=== PATIENT | male | born 1990 | race Caucasian/White ===

== ENCOUNTER 2016-05-12 13:15 | Emergency (ER) | payer SELFPAY ==
[~2016-05-12] VITALS: Ht 162.6 cm; Wt 72.6 kg
[~2016-05-12 13:15] MED LIST: AGM875T PO; CETI10CA PO; PRED10TA PO
[2016-05-12] MEDS ORDERED: AMOX500C2 PO (14:47)
--- NOTE | 2016-05-12 14:49 | ED EENT ---
History of Present Illness General Chief Complaint: Oral/Throat Problems Stated Complaint: SORE THROAT Nursing Triage Note: sore throat beginning yesterday Source: patient, family (sister) Exam Limitations: no limitations History of Present Illness Time seen by provider: 14:25 Initial Comments 25-year-old male patient presents to the emergency department complains of sore throat beginning yesterday. Reports today noticed white spots on his tonsils. Timing/Duration: abrupt Location: throat Prearrival Treatment: no prearrival treatment Presenting Symptoms/Injuries: sore throat Modifying Factors: Worse With Other (worse with swallowing.) Allergies and Home Medications Allergies Coded Allergies: No Known Drug Allergies (Unverified , 05/15/13) Home Medications Amoxicillin 500 Mg Capsule, 500 MG PO QID, #28 Ref 0 Prescribed by: SERGEY MANCERA on 05/12/16 1447 Cetirizine Hcl 10 Mg Capsule, 10 MG PO DAILY, #15 Prescribed by: SILKE SPENCER on 06/13/14 1217 Review of Systems Constitutional: No chills, No fever, No malaise Eyes: No Symptoms Reported Ears: Denies Dizziness, Denies Pain Nose: denies congestion, denies pain Mouth: no symptoms reported Throat: pain, denies swelling, denies neck stiffness, denies hoarse, denies aphonia, denies muffled, painful swallowing, denies difficulty with fluids Respiratory: no symptoms reported Cardiovascular: no symptoms reported Gastrointestinal: no symptoms reported Neurological: No Symptoms Reported All Other Systems Reviewed Negative Unless Noted: Yes (Negative excepted noted.) Past Hfyuqjx-Stqwfu-Rncdgh Hx Patient Social History Alcohol Use: Regular Use Recreational Drug Use: No Smoking Status: Current Everyday Smoker Recent Foreign Travel: No Contact w/Someone Who Travel: No Recent Hopitalizations: No Immunizations Up To Date Tetanus Booster (TDap): Less than 5yrs Surgeries HX Surgeries: No Respiratory Hx Respiratory Disorders: No Cardiovascular Hx Cardiac Disorders: No Neurological Hx Neurological Disorders: No Reproductive System Hx Reproductive Disorders: No Sexually Transmitted Disease: No HIV/AIDS: No Genitourinary Hx Genitourinary Disorders: No Gastrointestinal Hx Gastrointestinal Disorders: No Musculoskeletal Hx Musculoskeletal Disorders: No Endocrine Hx Endocrine Disorders: No HEENT HX ENT Disorders: No Cancer Hx Cancer: No Psychosocial Hx Psychiatric Problems: No Behavioral Health Disorders: ADD/ADHD Integumentary HX Skin/Integumentary Disorder: No Blood Transfusions Hx Blood Disorders: No Adverse Reaction to a Blood Tr: No Reviewed Nursing Assessment Reviewed/Agree w Nursing PMH: Yes Family Medical History Significant Family History: No Pertinent Family Hx Physical Exam General Appearance: WD/WN, no apparent distress Eyes: bilateral eye EOMI, bilateral eye PERRL, bilateral eye normal inspection Ears: bilateral ear TM normal, bilateral ear auricle normal, bilateral ear canal normal Nose: normal inspection Mouth/Throat: normal mouth inspection, tonsillar exudate, tonsillar swelling, No trismus, No uvula swelling, No voice changes, other (positive pharyngeal erythema) Neck: non-tender, full range of motion, supple, normal inspection Cardiovascular: regular rate, rhythm, no murmur Respiratory: lungs clear, normal breath sounds, no respiratory distress Neurologic/Psychiatric: alert, normal mood/affect, oriented x 3 Skin: normal color, warm/dry Progress/Results/Core Measures Results/Orders Lab Results Laboratory Tests Test 05/12/16 14:14 Range/Units Group A Streptococcus Screen NEGATIVE NEGATIVE My Orders Orders - SERGEY MANCERA Rapid Strep A Screen (05/12/16 14:13) Departure Communication Progress Notes Patient seen and evaluated. Laboratory findings discussed with the patient. Proceed with discharge to home. Impression Impression: Primary Impression: Tonsillitis Disposition: HOME, SELF-CARE Condition: Improved Departure-Patient Inst. Decision time for Depature: 14:46 Referrals: NO,LOCAL PHYSICIAN (PCP/Family) Primary Care Physician Patient Instructions: Strep Throat (DC) Add. Discharge Instructions: All discharge instructions reviewed with patient and/or family. Voiced understanding. Medications as instructed. Tylenol Extra Strength fubr-aiz-hpcuonp as directed for pain or fever. Ibuprofen 800 mg by mouth every 8 hours as needed for pain or fever. Throat lozenges or spray itim-lec-bdjqyax as directed for pain. Follow-up with the family practitioner of your choice for recheck if needed. Return to the emergency department for worsened symptoms or any other concerns. Scripts Amoxicillin (Amoxicillin) 500 Mg Capsule 500 MG PO QID, #28 CAP 0 Refills Prov: SERGEY MANCERA 05/12/16 Work/School Note: Local Medical Staff Listing, Work Release Form Date Seen in the Emergency Department: May 12, 2016 Return to Work: May 13, 2016 Restrictions: No Restrictions SERGEY MANCERA May 12, 2016 14:49
[2016-05-12 14:59] VITALS: BP 130/87
--- OUTSIDE RECORDS SUMMARY | 2016-05-27 18:19 | XMS REPORT ---
Author Author KATHY SHARMA Organization [employer] Address Unknown Phone Unavailable Care Team Providers Care Dog Breeder Name Role Phone KATHY SHARMA CP Unavailable Allergies, Adverse Reactions, Alerts Substance Reaction Event Type N.K.D.A. Info Not Available Non Drug Allergy Problems Problem Type Condition Code Onset Dates Condition Status Problem Screening examination for venereal disease V74.5 Active Assessment Acute conjunctivitis of right eye, unspecified acute conjunctivitis type H10.31 Active Problem Unspecified trichomoniasis 131.9 Active Medications Medication Code System Code Instructions Start Date End Date Status Dosage Qkqttwsl-Vrauxflnb-Iwgczsrw [facility] [id number] Ophthalmic Four times a day September 07, 2015 1 drop into affected eye Procedures Procedure Coding System Code Date Office Visit, Est Pt., Level 3 CPT-4 08265 September 07, 2015 Vital Signs Date/Time: September 07, 2015 Cardiac Monitoring Heart Rate 80 bpm Weight 140.6 lbs Height 66 in Blood Pressure Diastolic 90 mmHg Blood Pressure Systolic 124 mmHg Results No Known Results Summary Purpose [employer] Submission
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
== END 2016-05-12 14:59 | disposition home or self-care (01) ==
LOC: EDUNIT# 13:15 → ER 13:19
DX: J03.90 Acute tonsillitis, unspecified (principal); F17.210 Nicotine dependence, cigarettes, uncomplicated
CPT/HCPCS: 87430; 99282

== ENCOUNTER 2016-06-04 17:47 | Emergency (ER) | payer SELFPAY ==
[~2016-06-04] VITALS: Ht 160 cm; Wt 74.8 kg
[~2016-06-04 17:47] MED LIST changes: +AMOX500C2 PO
--- NOTE | 2016-06-04 18:22 | ED Abdominal Pain ---
General Chief Complaint: Abdominal/GI Problems Stated Complaint: SHARP ABD PAIN Nursing Triage Note: INTERMITTENT SHARP LUQ PAIN X2 DAYS. DENIES NVD. Sepsis Screen: No Definite Risk Source of Information: Patient Exam Limitations: No Limitations History of Present Illness Time Seen By Provider: 18:17 Initial Comments patient presents with 3 days of intermittent sharp pain in his left anterior abdominal wall reproducible on palpation last for less than 10 minutes at a time worse with moving twisting or stretching. He usually just stand still for a few moments and then it eases off and go back to work. He works at [employer]. Patient denies nausea, vomiting, fevers, chills, recent travel, camping, diarrhea, melena, trauma, history of these symptoms. Allergies and Home Medications Allergies Coded Allergies: No Known Drug Allergies (Unverified , 05/15/13) Home Medications Amoxicillin 500 Mg Capsule, 500 MG PO QID, #28 Ref 0 Prescribed by: SERGEY MANCERA on 05/12/16 1447 Cetirizine Hcl 10 Mg Capsule, 10 MG PO DAILY, #15 Prescribed by: SIKLE SPENCER on 06/13/14 1217 Review of Systems Constitutional: No chills, No fever, No malaise Respiratory: Denies Cough, Denies Shortness of Air, Denies Wheezing Cardiovascular: Denies Chest Pain, Denies Edema, Denies Syncope Gastrointestinal: See HPI, Denies Abdomen Distended, Abdominal Pain, Denies Constipated, Denies Diarrhea, Denies Nausea, Denies Vomiting Genitourinary: Denies Burning, Denies Drainage, Denies Frequency Musculoskeletal: No back pain, No joint pain Skin: No pruritus, No rash Psychiatric/Neurological: Denies Headache, Denies Numbness Past Jcuhhje-Maivde-Vbkhwy Hx Patient Social History Alcohol Use: Regular Use Recreational Drug Use: No Smoking Status: Current Everyday Smoker Type Used: Cigars Recent Foreign Travel: No Contact w/Someone Who Travel: No Recent Infectious Disease Expo: No Recent Hopitalizations: No Immunizations Up To Date Tetanus Booster (TDap): Less than 5yrs Surgeries HX Surgeries: No Respiratory Hx Respiratory Disorders: No Cardiovascular Hx Cardiac Disorders: No Neurological Hx Neurological Disorders: No Reproductive System Hx Reproductive Disorders: No Sexually Transmitted Disease: No HIV/AIDS: No Genitourinary Hx Genitourinary Disorders: No Gastrointestinal Hx Gastrointestinal Disorders: Yes Gastrointestinal Disorders: Gastroesophageal Reflux Musculoskeletal Hx Musculoskeletal Disorders: No Endocrine Hx Endocrine Disorders: No HEENT HX ENT Disorders: No Cancer Hx Cancer: No Psychosocial Hx Psychiatric Problems: No Behavioral Health Disorders: ADD/ADHD Integumentary HX Skin/Integumentary Disorder: No Blood Transfusions Hx Blood Disorders: No Adverse Reaction to a Blood Tr: No Family Medical History Significant Family History: No Pertinent Family Hx Physical Exam Vital Signs VS - Last 72 Hours, by Label 06/04/16 06/04/16 17:50 18:32 Temp 99.0 Pulse 100 89 Resp 16 16 B/P (MAP) 143/93 Pulse Ox 100 98 Capillary Refill : Less Than 3 Seconds General Appearance: WD/WN, no apparent distress HEENT: PERRL/EOMI, pharynx normal Neck: non-tender, full range of motion, supple, normal inspection Respiratory: chest non-tender, lungs clear, normal breath sounds Cardiovascular: normal peripheral pulses, regular rate, rhythm, no edema Peripheral Pulses: 4+ Dorsalis Pedis (R), 4+ Left Dors-Pedis (L), 4+ Radial Pulses (R), 4+ Radial Pulses (L) Gastrointestinal: normal bowel sounds, soft, no organomegaly, no pulsatile mass , No distended, tenderness (LUQ mild deep TTP) Progress/Results/Core Measures Results/Orders Vital Signs/I&O Vital Sign - Last 12Hours 06/04/16 06/04/16 17:50 18:32 Temp 99.0 Pulse 100 89 Resp 16 16 B/P (MAP) 143/93 Pulse Ox 100 98 Blood Pressure Mean: 110 Progress Note : Time: 00:18 Progress Note PT states he just had blood work a few weeks ago and declined further bloodwork today. He wasnted to make sure it was not serious. I explained it would unlikely be life threatening and he could follow up with his PCP. He states he goes to the HD to get checked for STIs every 6 weeks. Departure Impression Impression: Primary Impression: Abdominal wall pain Disposition: 01 HOME, SELF-CARE Condition: Stable Departure-Patient Inst. Decision time for Depature: 18:23 Referrals: NO,LOCAL PHYSICIAN (PCP) Primary Care Physician Patient Instructions: No Instuctions Given Add. Discharge Instructions: Your symptoms sound like abdominal wall pain which is musculoskeletal in nature and will resolve usually in a few weeks. you can treat this with heat or ice applied directly to the point that hurts as well as Tylenol or ibuprofen. if she developed new or concerning symptoms such as fever, nausea, vomiting, diarrhea or constipation and you should represent to the ER. I would also suggest getting some MiraLAX or Colace keep your bowel movements soft you don't have to strain so much. Use good body lifting mechanics while at work. All discharge instructions reviewed with patient and/or family. Voiced understanding. Work/School Note: Work Release Form Date Seen in the Emergency Department: Jun 04, 2016 Return to Work: Jun 04, 2016 Restrictions: No Restrictions JENNIFER ORTIZ Jun 04, 2016 18:22
[2016-06-04 18:32] VITALS: BP 126/74
== END 2016-06-04 18:32 | disposition home or self-care (01) ==
LOC: EDUNIT# 17:47 → ER 17:49
DX: R10.12 Left upper quadrant pain (principal)
CPT/HCPCS: 99282

== ENCOUNTER 2016-07-18 15:22 | Emergency (ER) | payer SELFPAY ==
[~2016-07-18] VITALS: Ht 160 cm; Wt 74.8 kg
--- NOTE | 2016-07-18 15:46 | ED Back Pain ---
General Chief Complaint: General Problems/Pain Stated Complaint: BACK PAIN Nursing Triage Note: patient reports catching patient last night off bar stool, patient reports today he slid and felt something pop on his L side. c/o side pain that wraps around to his abdomen and back Nursing Sepsis Screen: No Definite Risk Source of Information: Patient Exam Limitations: No Limitations History of Present Illness Time Seen by Provider: 15:44 Initial Comments To ER with midsternal pain and left-sided lower thoracic back pain. This began last night when he was admitted the bar with a friend and the friend began to fall so he twisted to catch her and felt a popping sensation of his back. Pain is worse with deep breathing and any movement or twisting motion in the left side of the chest, front and back since then. Location: T-Spine Timing/Duration: 12-24 Hours Severity: Moderate Allergies and Home Medications Allergies Coded Allergies: No Known Drug Allergies (Unverified , 05/15/13) Home Medications Amoxicillin 500 Mg Capsule, 500 MG PO QID, #28 Ref 0 Prescribed by: SERGEY MANCERA on 05/12/16 1447 Cetirizine Hcl 10 Mg Capsule, 10 MG PO DAILY, #15 Prescribed by: SILKE SPENCER on 06/13/14 1217 Constitutional: see HPI EENTM: see HPI Respiratory: no symptoms reported Cardiovascular: no symptoms reported Genitourinary: no symptoms reported Musculoskeletal: see HPI, back pain Skin: no symptoms reported Past Iajzigt-Esaeae-Ojalsr Hx Patient Social History Alcohol Use: Occasionally Uses Recreational Drug Use: No Type Used: Cigars Recent Foreign Travel: No Contact w/Someone Who Travel: No Recent Infectious Disease Expo: No Recent Hopitalizations: No Immunizations Up To Date Tetanus Booster (TDap): Less than 5yrs Surgeries HX Surgeries: No Respiratory Hx Respiratory Disorders: No Cardiovascular Hx Cardiac Disorders: No Neurological Hx Neurological Disorders: No Reproductive System Hx Reproductive Disorders: No Sexually Transmitted Disease: No HIV/AIDS: No Genitourinary Hx Genitourinary Disorders: No Gastrointestinal Hx Gastrointestinal Disorders: Yes Gastrointestinal Disorders: Gastroesophageal Reflux Musculoskeletal Hx Musculoskeletal Disorders: No Endocrine Hx Endocrine Disorders: No HEENT HX ENT Disorders: No Cancer Hx Cancer: No Psychosocial Hx Psychiatric Problems: No Behavioral Health Disorders: ADD/ADHD Integumentary HX Skin/Integumentary Disorder: No Blood Transfusions Hx Blood Disorders: No Adverse Reaction to a Blood Tr: No Family Medical History Significant Family History: No Pertinent Family Hx Physical Exam Vital Signs Vital Sign - Last 12Hours 07/18/16 15:38 Temp 98.2 Pulse 108 Resp 18 B/P (MAP) 132/83 Pulse Ox 100 Capillary Refill : Less Than 3 Seconds General Appearance: No Apparent Distress, WD/WN HEENT: PERRL/EOMI, TMs Normal Neck: Full Range of Motion, Normal Inspection Respiratory: No Accessory Muscle Use, No Respiratory Distress Gastrointestinal: Normal Bowel Sounds, Non Tender, Soft Extremity: Normal Capillary Refill, Normal Inspection Neurologic/Psychiatric: Alert, Oriented x3, No Motor/Sensory Deficits Skin: Normal Color, Warm/Dry Progress/Results/Core Measures Results/Orders My Orders Orders - SILKE SPENCER APRN Chest Pa/Lat (2 View) (07/18/16 15:42) Hydrocodone/Apap 5/325 Tablet (Lortab 5 (07/18/16 15:45) Vital Signs/I&O Vital Sign - Last 12Hours 07/18/16 15:38 Temp 98.2 Pulse 108 Resp 18 B/P (MAP) 132/83 Pulse Ox 100 Blood Pressure Mean: 99 Departure Impression Impression: Primary Impression: Muscle strain Disposition: 01 HOME, SELF-CARE Condition: Stable Departure-Patient Inst. Decision time for Depature: 15:57 Referrals: NO,LOCAL PHYSICIAN (PCP) Primary Care Physician Patient Instructions: Muscle Strain Add. Discharge Instructions: 1. Medications as directed 2. Follow-up with your doctor next week 3. All discharge instructions reviewed with patient and/or family. Voiced understanding. Scripts Naproxen (Naprosyn) 500 Mg Tablet 500 MG PO BID Y for PAIN-MODERATE, #30 TAB Prov: SILKE SPENCER APRN 07/18/16 Cyclobenzaprine HCl (Cyclobenzaprine HCl) 5 Mg Tablet 5 MG PO TID Y for PAIN-MODERATE, #20 TAB Prov: SILKE SPENCER APRN 07/18/16 Images Torso/Trunk 1 - Tenderness 1 - Tenderness SILKE SPENCER APRN Jul 18, 2016 15:46
[2016-07-18] MEDS: HYDROcodone/APAP 5 MG/325 MG (LORTAB) TAB PO ONE (15:56)
[2016-07-18] MEDS ORDERED: NAPR500T PO (15:58)
[2016-07-18] MEDS ORDERED: CYCL5TAB PO (15:58)
--- NOTE | 2016-07-18 16:15 | Diagnostic Imaging Report ---
INDICATION: Posterior left chest pain. DISCUSSION: Two views of the chest were obtained, no comparison. Normal heart size. No focal consolidation, pleural fluid, or pneumothorax. No acute osseous abnormality identified. IMPRESSION: 1. Negative chest. Dictated by: Dictated on workstation # [id number]
[2016-07-18 16:26] VITALS: BP 132/83
== END 2016-07-18 16:24 | disposition home or self-care (01) ==
LOC: EDUNIT# 15:22 → ER 15:24
DX: S29.012A Strain of muscle and tendon of back wall of thorax, initial encounter (principal); X50.0XXA Overexertion from strenuous movement or load, initial encounter; Y92.511 Restaurant or cafe as the place of occurrence of the external cause; Y99.8 Other external cause status
CPT/HCPCS: 71020; 99281

== ENCOUNTER 2018-05-18 12:15 | Emergency (ER) | payer SELFPAY ==
[~2018-05-18] VITALS: Ht 162.6 cm; Wt 61.2 kg
[~2018-05-18 12:15] MED LIST changes: +CYCL5TAB PO; +NAPR-1071 PO
--- OUTSIDE RECORDS SUMMARY | 2018-05-18 12:22 | XMS REPORT ---
Author Author DARIEN SANCHEZ Organization [facility] Address [address] [place] [address] Care Team Providers Care Production Lead Name Role Phone DARIEN SANCHEZ Unavailable PROBLEMS Unknown Problems ALLERGIES No Known Allergies ENCOUNTERS Encounter Location Date Diagnosis [facility] [address] [phone] Dec, Acute sinusitis J01.90 [facility] [address] [place] [phone] Mar, [facility] [address] [id number] Mar, Dental examination Z01.20 [facility] [address] [phone] Jan, Body aches R52 ; Other viral agents as the cause of diseases classified elsewhere B97.89 and Acute upper respiratory infection, unspecified J06.9 [place] [place] [id number] [place] [phone] Nov, Nausea and vomiting, intractability of vomiting not specified, unspecified vomiting type R11.2 ; Exposure to the flu Z20.828 and Tobacco use Z72.0 [facility] [address] [place] [id number] [place] [phone] Oct, Allergic rhinitis, unspecified allergic rhinitis trigger, unspecified rhinitis seasonality J30.9 ; Middle ear effusion, bilateral H65.93 and Diarrhea, unspecified type R19.7 [facility] [address] [place], [place] [id number] [place] [phone] Aug, Acute conjunctivitis of right eye, unspecified acute conjunctivitis type H10.31 [facility] [address] [facility] [id number] [address] May, [facility] [address] [facility] [id number], [place] [address] May, [facility] [address] [facility] [id number] [address] Jan, [facility] [address] [facility] [id number], [place] [address] Jan, [facility] [address] [facility] [id number], [place] [address] Dec, [place] [address] [facility] [id number], [place] [address] Dec, IMMUNIZATIONS No Known Immunizations SOCIAL HISTORY Never Assessed REASON FOR VISIT Pt has been having generalized weakness for 3 days and yesterday he was vomiting x 3 and once today. Pt also stated that he his having nasal congestion. Pt stated that he has been having nasal drainage as well. Pt has had a cough for 3 days and a fever reaching 101 two days ago but no fever since that time. LINDA PLAN OF CARE Activity Details Follow Up if not improving with PCP or reg follow up Reason: VITAL SIGNS Height 66 in 2018-01-12 Weight 146 lbs 2018-01-12 Temperature 98 degrees Fahrenheit 2018-01-12 Heart Rate 96 bpm 2018-01-12 Respiratory Rate 18 2018-01-12 Oximetry on room air:99 % 2018-01-12 BMI 23.56 kg/m2 2018-01-12 Blood pressure systolic 106 mmHg 2018-01-12 Blood pressure diastolic 70 mmHg 2018-01-12 MEDICATIONS Medication Instructions Dosage Frequency Start Date End Date Duration Status DayQuil Multi-Symptom Active PredniSONE 20 MG Orally Once a day 2 tablet 24h Dec, 5 days Active Ibuprofen 200 MG Orally Three times a day 1 tablet with food or milk as needed 8h Active RESULTS No Results PROCEDURES No Known procedures INSTRUCTIONS MEDICATIONS ADMINISTERED No Known Medications
--- OUTSIDE RECORDS SUMMARY | 2018-05-18 12:22 | XMS REPORT ---
Author Author [facility] Address [address] [place] [address] Care Team Providers Care Recruiting Consultant Name Role Phone ARIANA SANDY Unavailable PROBLEMS Unknown Problems ALLERGIES No Known Allergies ENCOUNTERS Encounter Location Date Diagnosis [facility] [address] [address] Jan, Drug-induced diarrhea K52.1 [facility] [place] [address] [address] Jan, Acute sinusitis J01.90 [facility] IN [facility] [address] [address] Dec, Acute sinusitis J01.90 [facility] [place] [address] [address] Mar, [facility] [address] [id number] Mar, Dental examination Z01.20 [facility] [place] [address] [address] Jan, Body aches R52 ; Other viral agents as the cause of diseases classified elsewhere B97.89 and Acute upper respiratory infection, unspecified J06.9 [facility] [place] [id number] [place] [address] Nov, Nausea and vomiting, intractability of vomiting not specified, unspecified vomiting type R11.2 ; Exposure to the flu Z20.828 and Tobacco use Z72.0 [facility] [id number] [place] [address] Oct, Allergic rhinitis, unspecified allergic rhinitis trigger, unspecified rhinitis seasonality J30.9 ; Middle ear effusion, bilateral H65.93 and Diarrhea, unspecified type R19.7 [facility] [id number] [place] [address] Aug, Acute conjunctivitis of right eye, unspecified acute conjunctivitis type H10.31 [facility] [place] [address] [id number] [address] May, [facility] [place] [id number] [place] [address] May, [place] [id number] [place] [address] Jan, [facility] [place] [id number] [place] [address] Jan, [place] [id number] [place] [address] Dec, [facility] [place] [id number] [place] [address] Dec, IMMUNIZATIONS No Known Immunizations SOCIAL HISTORY Never Assessed REASON FOR VISIT Lower abdominal pain described as pressure and rated at 6 with diarrhea since this morning. Pt states he has had 10 loose stool movements since this morning. Staying hydrated. Denies vomiting or fever. Laying down relieves the pain. [email or web address] PLAN OF CARE Activity Details Follow Up prn Reason: VITAL SIGNS Height 66 in 2018-01-27 Weight 142.2 lbs 2018-01-27 Temperature 98.2 degrees Fahrenheit 2018-01-27 Heart Rate 96 bpm 2018-01-27 Respiratory Rate 20 2018-01-27 BMI 22.95 kg/m2 2018-01-27 Blood pressure systolic 110 mmHg 2018-01-27 Blood pressure diastolic 84 mmHg 2018-01-27 MEDICATIONS Medication Instructions Dosage Frequency Start Date End Date Duration Status Ibuprofen 200 MG Orally Three times a day 1 tablet with food or milk as needed 8h Active Augmentin 875-125 MG Orally every 12 hrs 1 tablet 12h Jan, 10 day(s) Not-Taking RESULTS No Results PROCEDURES No Known procedures INSTRUCTIONS MEDICATIONS ADMINISTERED No Known Medications MEDICAL (GENERAL) HISTORY Type Description Date Surgical History No know Surgical history
--- OUTSIDE RECORDS SUMMARY | 2018-05-18 12:22 | XMS REPORT ---
Author Author ASHLEE JOHNSTON [facility] Address [address] [place] [address] Care Team Providers Care Brazing Machine Tender Name Role Phone ASHLEE JOHNSTON Unavailable PROBLEMS Unknown Problems ALLERGIES No Known Allergies ENCOUNTERS Encounter Location Date Diagnosis [facility] [address] [address] Mar, [facility] [address] [id number] Mar, Dental examination Z01.[address] [address] Jan, Body aches R52 ; Other viral agents as the cause of diseases classified elsewhere B97.89 and Acute upper respiratory infection, unspecified J06.9 [place] [id number] [place] [address] Nov, Nausea and vomiting, intractability of vomiting not specified, unspecified vomiting type R11.2 ; Exposure to the flu Z20.828 and Tobacco use Z72.0 [facility] [address] [place], [place] [id number] [place] [address] Oct, Allergic rhinitis, unspecified allergic rhinitis trigger, unspecified rhinitis seasonality J30.9 ; Middle ear effusion, bilateral H65.93 and Diarrhea, unspecified type R19.[address] [address] Aug, Acute conjunctivitis of right eye, unspecified acute conjunctivitis type H10.[address] [address] May, [place] [address] [place] [address] May, [facility] [address] [facility] [id number] [place] [address] Jan, [facility] [address] [facility] [id number] [address] Jan, [facility] [address] [facility] [id number], [place] [address] Dec, [facility] [address] [facility] [id number] [address] Dec, IMMUNIZATIONS No Known Immunizations SOCIAL HISTORY Never Assessed REASON FOR VISIT flu symptoms: vomiting, body aches, congestion and fever of 101 started this morning yi hurtado PLAN OF CARE Activity Details Follow Up prn Reason: VITAL SIGNS Height 66 in 2017-01-26 Weight 143 lbs 2017-01-26 Temperature 97.5 degrees Fahrenheit 2017-01-26 Heart Rate 84 bpm 2017-01-26 Respiratory Rate 20 2017-01-26 BMI 23.08 kg/m2 2017-01-26 Blood pressure systolic 130 mmHg 2017-01-26 Blood pressure diastolic 80 mmHg 2017-01-26 MEDICATIONS Medication Instructions Dosage Frequency Start Date End Date Duration Status Zofran 8 MG Orally TID PRN 1 tablet Nov, 10 days Not-Taking Ondansetron 4 MG Orally every 8 hrs 1 tablet on the tongue and allow to dissolve 8h Jan, 07 days Active Ibuprofen 200 MG Orally Three times a day 1 tablet with food or milk as needed 8h Active RESULTS Name Result Date Reference Range INFLUENZA A & B (IN HOUSE) 2017-01-26 INFLUENZA A negative INFLUENZA B negative Control + Lot # [id number] Exp date 08/12/2018 PROCEDURES Procedure Date Ordered Result Body Site INFLUENZA ASSAY W/OPTIC Jan 26, 2017 INSTRUCTIONS MEDICATIONS ADMINISTERED No Known Medications
--- OUTSIDE RECORDS SUMMARY | 2018-05-18 12:22 | XMS REPORT ---
Author Author ARMANDO KEMP [facility] IN [facility] Address [address] [place] [address] Care Team Providers Care Client Support Manager Name Role Phone ARMANDO KEMP Unavailable PROBLEMS Unknown Problems ALLERGIES No Known Allergies ENCOUNTERS Encounter Location Date Diagnosis [address] [address] Jan, Acute sinusitis J01.[address] [address] Dec, Acute sinusitis J01.[address] [address] Mar, [facility] [address] [id number] Mar, Dental examination Z01.[address] [address] Jan, Body aches R52 ; Other viral agents as the cause of diseases classified elsewhere B97.89 and Acute upper respiratory infection, unspecified J06.[address] [address] Nov, Nausea and vomiting, intractability of vomiting not specified, unspecified vomiting type R11.2 ; Exposure to the flu Z20.828 and Tobacco use Z72.[address] [address] Oct, Allergic rhinitis, unspecified allergic rhinitis trigger, unspecified rhinitis seasonality J30.9 ; Middle ear effusion, bilateral H65.93 and Diarrhea, unspecified type R19.7 [facility] [address] [facility] [id number] [address] Aug, Acute conjunctivitis of right eye, unspecified acute conjunctivitis type H10.31 [facility] [id number] [address] May, [facility] [address] [id number] [address] May, [facility] [address], [place] [address] Jan, [facility] [address] [id number] [address] Jan, [facility] [address] [address] Dec, [facility] [address] [id number] [address] Dec, IMMUNIZATIONS No Known Immunizations SOCIAL HISTORY Never Assessed REASON FOR VISIT cough, congestion in his head. was [facility]12 et was given oral steroids. reports he took all of those et is still having the same symptoms. wants something to break up the secretions. sonal PLAN OF CARE Activity Details Follow Up if not improving with PCP or reg follow up Reason: VITAL SIGNS Height 66 in 2018-01-19 Weight 142.4 lbs 2018-01-19 Temperature 98.4 degrees Fahrenheit 2018-01-19 Heart Rate 88 bpm 2018-01-19 Respiratory Rate 20 2018-01-19 BMI 22.98 kg/m2 2018-01-19 Blood pressure systolic 110 mmHg 2018-01-19 Blood pressure diastolic 68 mmHg 2018-01-19 MEDICATIONS Medication Instructions Dosage Frequency Start Date End Date Duration Status Augmentin 875-125 MG Orally every 12 hrs 1 tablet 12h Jan, 10 day(s) Active Ibuprofen 200 MG Orally Three times a day 1 tablet with food or milk as needed 8h Active RESULTS No Results PROCEDURES No Known procedures INSTRUCTIONS MEDICATIONS ADMINISTERED No Known Medications MEDICAL (GENERAL) HISTORY Type Description Date Surgical History No know Surgical history
--- OUTSIDE RECORDS SUMMARY | 2018-05-18 12:22 | XMS REPORT ---
Author Author OMAR RAUDEL Angel [facility] Address Unknown Care Team Providers Care Washer And Capper Machine Operator Name Role Phone RAUDEL NELSON Unavailable PROBLEMS Unknown Problems ALLERGIES No Information ENCOUNTERS Encounter Location Date Diagnosis [facility] [address] [address] Mar, [facility] [address] [id number] Mar, Dental examination Z01.20 [facility] [place] [address] [address] Jan, Body aches R52 ; Other viral agents as the cause of diseases classified elsewhere B97.89 and Acute upper respiratory infection, unspecified J06.[address] [address] Nov, Nausea and vomiting, intractability of vomiting not specified, unspecified vomiting type R11.2 ; Exposure to the flu Z20.828 and Tobacco use Z72.[address] [address] Oct, Allergic rhinitis, unspecified allergic rhinitis trigger, unspecified rhinitis seasonality J30.9 ; Middle ear effusion, bilateral H65.93 and Diarrhea, unspecified type R19.7 [place] [id number] [place] [address] Aug, Acute conjunctivitis of right eye, unspecified acute conjunctivitis type H10.[address] [address] May, [address] [address] May, [facility] [address] [facility] [id number] [address] Jan, [facility] [address] [id number] [address] Jan, [facility] [address] [facility] [id number] [address] Dec, [facility] [address] [id number] [address] Dec, IMMUNIZATIONS No Known Immunizations SOCIAL HISTORY Never Assessed REASON FOR VISIT LVM PLAN OF CARE VITAL SIGNS MEDICATIONS Unknown Medications RESULTS No Results PROCEDURES No Known procedures INSTRUCTIONS MEDICATIONS ADMINISTERED No Known Medications
--- OUTSIDE RECORDS SUMMARY | 2018-05-18 12:22 | XMS REPORT ---
Author Author ESPERANZA ALMARAZ [facility] Address [address] [place] [address] Care Team Providers Care Mount Loader Name Role Phone ESPERANZA ALMARAZ Unavailable PROBLEMS Unknown Problems ALLERGIES No Known Allergies ENCOUNTERS Encounter Location Date Diagnosis [facility] [address] [address] Mar, [facility] [address] [id number] Mar, Dental examination Z01.[address] [address] Jan, Body aches R52 ; Other viral agents as the cause of diseases classified elsewhere B97.89 and Acute upper respiratory infection, unspecified J06.9 [place] [id number] [place] [address] Nov, Nausea and vomiting, intractability of vomiting not specified, unspecified vomiting type R11.2 ; Exposure to the flu Z20.828 and Tobacco use Z72.0 [facility] [address] [place] [id number] [place] [address] Oct, Allergic rhinitis, unspecified allergic rhinitis trigger, unspecified rhinitis seasonality J30.9 ; Middle ear effusion, bilateral H65.93 and Diarrhea, unspecified type R19.[address] [address] Aug, Acute conjunctivitis of right eye, unspecified acute conjunctivitis type H10.[address] [address] May, [place] [address] [place] [address] May, [facility] [address] [facility] [id number], [place] [address] Jan, [facility] [address] [facility] [id number], [place] [address] Jan, [facility] [address] [facility] [id number], [place] [address] Dec, [facility] [address] [facility] [id number], [place] [address] Dec, IMMUNIZATIONS No Known Immunizations SOCIAL HISTORY Never Assessed REASON FOR VISIT Stomach ache, not able to eat , diarreha, vomiting , chills and feeling tired x 2 weeks -- meghan lenz PLAN OF CARE Activity Details Follow Up Needs to establish with PCP Reason: VITAL SIGNS Height 66 in 2016-12-15 Weight 147.0 lbs 2016-12-15 Temperature 97.0 degrees Fahrenheit 2016-12-15 Heart Rate 92 bpm 2016-12-15 Respiratory Rate 22 2016-12-15 BMI 23.72 kg/m2 2016-12-15 Blood pressure systolic 120 mmHg 2016-12-15 Blood pressure diastolic 76 mmHg 2016-12-15 MEDICATIONS Medication Instructions Dosage Frequency Start Date End Date Duration Status Zofran 8 MG Orally TID PRN 1 tablet Nov, 10 days Active Ibuprofen 200 MG Orally Three times a day 1 tablet with food or milk as needed 8h Active RESULTS No Results PROCEDURES No Known procedures INSTRUCTIONS MEDICATIONS ADMINISTERED No Known Medications
--- OUTSIDE RECORDS SUMMARY | 2018-05-18 12:23 | XMS REPORT | Continuity of Care Document ---
Author Author On License Of [facility] Address Unknown Phone Unavailable Allergies Active Description Code Type Severity Reaction Onset Reported/Identified Relationship to Patient Clinical Status Yes No Known Drug Allergies [id number] Drug Allergy Unknown N/A 05/15/2013 Medications There is no data. Problems Date Dx Coded Attending Type Code [...] SLIPPING, TRIPPING, OR STUMBLI 06/13/2014 SILKE SPENCER APRN Ot 477.9 ALLERGIC RHINITIS NOS 06/13/2014 SILKE SPENCER APRN Ot 784.2 SWELLING IN HEAD NECK 07/06/2014 [...] Procedures Code Description [place] [address] GC/CHLAM URINE (STATE) 01/14/2013 Results Test Result Range Streptococcus pyogenes antigen detection - 05/12/16 14:14 Streptococcus pyogenes antigen detection NEGATIVE NEGATIVE Bacterial throat culture - 05/12/16 14:14 Bacterial throat culture NBS NRG Encounters ACCT No. Visit Date/Time Discharge Status Pt. Type Provider Facility Loc./Unit Complaint [id number] 01/11/2013 16:53:00 01/11/2013 23:59:59 CLS Outpatient ALVAREZ PAT PIMENTEL [id number] 05/03/2018 12:00:00 05/03/2018 23:59:59 CLS Outpatient [facility]IRIOT[facility] [id number] 07/18/2016 15:24:00 07/18/2016 16:24:00 DIS Emergency SILKE SPENCER APRN [facility] ER BACK PAIN [id number] 06/04/2016 17:49:00 06/04/2016 18:32:00 DIS Emergency JENNIFER ORTIZ MD [facility] ER SHARP ABD PAIN [id number] 05/12/2016 13:19:00 05/12/2016 14:59:00 DIS Emergency SERGEY ORTIZ [facility] ER SORE THROAT [id number] 07/06/2014 13:47:00 07/06/2014 16:35:00 DIS Emergency STUART VILLA MD [facility] ER TESTICLE PAIN [id number] 06/13/2014 11:54:00 06/13/2014 12:38:00 DIS Emergency SILKE SPENCER FRAUD PREVENTION ANALYST [facility] ER FACIAL SWELLING [id number] 05/15/2013 04:28:00 05/15/2013 04:59:00 DIS Emergency KENDALL MCCOY DO [facility] ER LIP LAC
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
[2018-05-18 14:37] VITALS: BP 139/80
== END 2018-05-18 14:37 | disposition home or self-care (01) ==
LOC: EDUNIT# 12:15 → ER 12:17
DX: S09.90XA Unspecified injury of head, initial encounter (principal); S00.03XA Contusion of scalp, initial encounter; S10.93XA Contusion of unspecified part of neck, initial encounter; K21.9 Gastro-esophageal reflux disease without esophagitis; F98.8 Other specified behavioral and emotional disorders with onset usually occurring in childhood and adolescence; F90.9 Attention-deficit hyperactivity disorder, unspecified type; R40.2142 Coma scale, eyes open, spontaneous, at arrival to emergency department; R40.2252 Coma scale, best verbal response, oriented, at arrival to emergency department; R40.2362 Coma scale, best motor response, obeys commands, at arrival to emergency department; F17.290 Nicotine dependence, other tobacco product, uncomplicated; Y09 Assault by unspecified means
CPT/HCPCS: 70450; 70486; 72125

== ENCOUNTER 2019-07-16 13:21 | Emergency (ER) | payer SELFPAY ==
[~2019-07-16] VITALS: Ht 165.1 cm; Wt 63.5 kg
[2019-07-16 13:27] VITALS: BP 144/83
--- NOTE | 2019-07-16 13:32 | ED Lower Extremity ---
General Chief Complaint: Lower Extremity Stated Complaint: L FOOT PAIN Source: patient Exam Limitations: no limitations History of Present Illness Date Seen by Provider: July 16, 2019 Time Seen by Provider: 13:26 Initial Comments Here with report of left foot pain after accidentally stepping in a hole last night while walking out to his car. Denies other injury. Complains of pain to the mid foot and not the ankle on the left. Better when he is in his boot and w orse when it out. Has not had anything for pain today. Onset: other (last night) Severity: moderate Pain/Injury Location: left foot Method of Injury: twisted Modifying Factors: Improves With Immobilization; Worse With Movement Allergies and Home Medications Allergies Coded Allergies: No Known Drug Allergies (Unverified , 05/15/13) Patient Home Medication List Home Medication List Reviewed: Yes Review of Systems Constitutional: no symptoms reported Respiratory: no symptoms reported Cardiovascular: no symptoms reported Musculoskeletal: see HPI, joint pain, muscle pain Skin: no symptoms reported Past Aomyxdf-Mwbvbx-Fsyidb Hx Past Med/Social Hx: Reviewed Nursing Past Med/Soc Hx Patient Social History Alcohol Use: Regular Use Alcohol Beverage of Choice: Beer, Whiskey Recreational Drug Use: No Smoking Status: Current Everyday Smoker Type Used: Cigars Recent Foreign Travel: No Contact w/Someone Who Travel: No Recent Hopitalizations: No Immunizations Up To Date Tetanus Booster (TDap): Less than 5yrs Past Medical History Surgeries: No Respiratory: No Cardiac: No Neurological: No Reproductive Disorders: No Sexually Transmitted Disease: No HIV/AIDS: No Gastrointestinal: Yes Gastroesophageal Reflux Musculoskeletal: No Endocrine: No Cancer: No Psychosocial: No ADD/ADHD Integumentary: No Blood Disorders: No Adverse Reaction/Blood Tranf: No Family Medical History Reviewed Nursing Family Hx No Pertinent Family Hx Physical Exam Vital Signs Vital Signs - First Documented 07/16/19 13:27 Temp 36.9 Pulse 112 Resp 20 B/P (MAP) 144/83 (103) Pulse Ox 97 O2 Delivery Room Air Capillary Refill : Height, Weight, BMI Height: 5'4.00" Weight: 135lbs. oz. 61.969432zc; 26.57 BMI Method:Stated General Appearance: WD/WN, no apparent distress Cardiovascular: regular rate, rhythm, no murmur Respiratory: lungs clear, normal breath sounds Feet: left foot pain (moderate midfoot), left foot soft tissue tenderness, left foot swelling (mild to the area of the midfoot) Neurologic/Tendon: normal sensation, normal motor functions, normal tendon functions Neurologic/Psychiatric: alert, oriented x 3 Skin: normal color, warm/dry Progress/Results/Core Measures Results/Orders My Orders Orders - RUI SY MD Foot, Left, 3 Views (07/16/19 13:30) Vital Signs/I&O 07/16/19 13:27 Temp 36.9 Pulse 112 Resp 20 B/P (MAP) 144/83 (103) Pulse Ox 97 O2 Delivery Room Air Progress Progress Note : Progress Note Seen and evaluated. X-ray left foot. Offered pain medicine but he declined. Ice pack given. Monitor patient. 1350: No acute fractures. Walking boot applied. Discharged home with return precautions. Patient verbalize understanding in structions and agreement with plan. Diagnostic Imaging Diagonstic Imaging: Xray Plain Films/CT/US/NM/MRI: other ("left foot) Comments NAME: MALGORZATA GROVES Lily Edmonds MED REC#: [id number] PT STATUS: REG ER : 1990 PHYSICIAN: RUI SY MD ADMIT DATE: 07/16/19/ER Draft Date of Exam:07/16/19 FOOT, LEFT, 3 VIEWS INDICATION: Fall, pain COMPARISON: None available TECHNIQUE: 3 radiographs of the left foot dated 07/16/2019. FINDINGS: No acute fracture or dislocation. No destructive osseous process. Joint spaces are well-maintained. No suspicious radiopaque foreign body. IMPRESSION: No acute osseous abnormality. Dictated on workstation # [id number] Dict: 07/16/19 1359 Trans: 07/16/19 1405 [facility] [id number] Interpreted by: ANAI KAISER MD Electronically signed by: Reviewed: Reviewed by Me Departure Impression Primary Impression: Strain of left foot Qualified Codes: S96.912A - Strain of unspecified muscle and tendon at ankle and foot level, left foot, initial encounter Additional Impression: Environmental allergies Disposition: HOME, SELF-CARE Condition: Stable Departure-Patient Inst. Decision time for Depature: 13:51 Referrals: NO,LOCAL PHYSICIAN (PCP/Family) Primary Care Physician Patient Instructions: Foot Sprain (DC) Add. Discharge Instructions: All discharge instructions reviewed with patient and/or family. Voiced understanding. You may take ibuprofen 600 mg every 8 hours as needed for pain. You may also take Tylenol/acetaminophen 1000 mg every 8 hours as needed for pain. Use walking boot as needed over the next several days for comfort and support. Return to well fitting and supportive shoes when able. Return for worse pain, swelling, numbness or other concerns as needed. Elevate foot and use ice packs 20 minutes per hour over the next one to 2 days as needed to reduce swelling and decreased pain. Use walking boot when moving around but you may take it off if you are not walking. RUI SY MD July 16, 2019 13:32
--- NOTE | 2019-07-16 14:06 | Diagnostic Imaging Report ---
INDICATION: Fall, pain COMPARISON: None available TECHNIQUE: 3 radiographs of the left foot dated 07/16/2019. FINDINGS: No acute fracture or dislocation. No destructive osseous process. Joint spaces are well-maintained. No suspicious radiopaque foreign body. IMPRESSION: No acute osseous abnormality. Dictated by: Dictated on workstation # [id number]
== END 2019-07-16 14:14 | disposition home or self-care (01) ==
LOC: EDUNIT# 13:21 → ER 13:22
DX: S96.912A Strain of unspecified muscle and tendon at ankle and foot level, left foot, initial encounter (principal); T78.49XA Other allergy, initial encounter; F17.290 Nicotine dependence, other tobacco product, uncomplicated; X50.1XXA Overexertion from prolonged static or awkward postures, initial encounter
CPT/HCPCS: 73630